=== PATIENT | male | born 1960 | race Caucasian/White ===

== ENCOUNTER 2019-11-09 08:00 | Outpatient (CLI) | payer OTHER | END 2019-11-09 23:59 | disposition home or self-care (01) | LOC: COV 08:00 | PROVIDERS: ATTEND Family Medicine | DX: R06.02 Shortness of breath (principal); M79.10 Myalgia, unspecified site; R53.83 Other fatigue; R11.0 Nausea; Z20.828 Contact with and (suspected) exposure to other viral communicable diseases | CPT/HCPCS: 81599 ==

== ENCOUNTER 2021-02-14 13:08 | Outpatient (CLI) | payer OTHER | END 2021-02-14 13:09 | disposition home or self-care (01) | LOC: COV 13:08 | PROVIDERS: ATTEND Family Medicine | DX: R05 Cough (principal); R06.02 Shortness of breath; M79.10 Myalgia, unspecified site; R68.83 Chills (without fever); R09.81 Nasal congestion; Z20.822 Contact with and (suspected) exposure to COVID-19 ==

== ENCOUNTER 2022-07-10 11:33 | Outpatient (CLI) | payer OTHER ==
--- NOTE | 2022-07-10 18:02 | XRAY Report ---
PROCEDURE: Foot 3 View RT INDICATIONS: RIGHT FOOT PAIN TECHNIQUE: 3 views of the foot were acquired. COMPARISON: None FINDINGS: Bones: No fractures or dislocations. No suspicious bony lesions. Soft tissues: No tibiotalar joint effusion. Achilles tendon appears normal. IMPRESSION: Intact right foot. Reviewed by: Sammie Culp MD on 07/10/2022 5:01 PM [place] Approved by: Sammie Culp MD on 07/10/2022 5:01 PM [facility] [[email or web address]] Station ID: [id number]
--- NOTE | 2022-07-10 18:04 | XRAY Report ---
PROCEDURE: Knee 2 View RT INDICATIONS: RIGHT KNEE PAIN TECHNIQUE: 2 views of the right knee(s) were acquired. COMPARISON: None. FINDINGS: Bones: No fracture or dislocation. There is moderate patellofemoral compartment joint space loss and mild patellar spurring. Soft tissues: No joint effusion. No chondrocalcinosis. Moderate peripheral vascular calcification. IMPRESSION: 1. Patellofemoral compartment degeneration. 2. Peripheral vascular calcification. Reviewed by: Sammie Culp MD on 07/10/2022 5:02 PM [facility] Approved by: Sammei Culp MD on 07/10/2022 5:02 PM [place] Station ID: [id number]
== END 2022-07-10 11:34 | disposition home or self-care (01) ==
LOC: DI 11:33
PROVIDERS: ATTEND Student in an Organized Health Care Education/Training Program
DX: M79.671 Pain in right foot (principal); M17.11 Unilateral primary osteoarthritis, right knee; I70.201 Unspecified atherosclerosis of native arteries of extremities, right leg

== ENCOUNTER 2023-12-22 09:30 | Outpatient (CLI) | payer BC, OTHER ==
--- NOTE | 2023-12-22 16:24 | XRAY Report ---
PROCEDURE: Hand 3+V RT INDICATIONS: HAND PAIN, RIGHT TECHNIQUE: 3 views of the hand(s) acquired. COMPARISON: None. FINDINGS: Bones: No fractures or dislocations. No suspicious bony lesions. Soft tissues: No suspicious soft tissue calcifications or masses. IMPRESSION: No visualized acute fracture or dislocation. However, occult injury cannot be excluded. Recommend ramez rt interval imaging follow-up in 7-10 days as clinically indicated for additional evaluation. Reviewed by: Cassie Garcia MD on 12/22/2023 4:23 PM PDT Approved by: Cassie Garcia MD on 12/22/2023 4:23 PM PDT Station ID: [id number]
== END 2023-12-24 09:45 | disposition home or self-care (01) ==
LOC: DI.N 09:30
PROVIDERS: ATTEND Family Medicine
DX: M79.641 Pain in right hand (principal)